=== PATIENT | female | born 1995 | race Caucasian/White ===

== ENCOUNTER 2017-03-18 06:00 | Outpatient (RCR) | payer OTHER | END 2017-04-03 | disposition home or self-care (01) | LOC: M ST 06:00 | PROVIDERS: ATTEND Internal Medicine | DX: Z51.89 Encounter for other specified aftercare (principal); J38.3 Other diseases of vocal cords ==

== ENCOUNTER → 2017-06-13 | Outpatient (CLI) | payer OTHER | LOC: M WUC 14:01 | PROVIDERS: ATTEND Physician Assistant | DX: Z02.5 Encounter for examination for participation in sport (principal) ==

== ENCOUNTER → 2025-06-14 | Outpatient (CLI) | payer OTHER ==
[2025-06-14 18:26] LABS: HCG, SERUM QUALITATIVE NEGATIVE (NEGATIVE)
== END ==
LOC: M PLALAB 15:19
PROVIDERS: ATTEND Advanced Practice Midwife
DX: O20.0 Threatened abortion (principal)

== ENCOUNTER → 2025-06-16 | Outpatient (CLI) | payer OTHER | LOC: M PLALAB 15:19 | PROVIDERS: ATTEND Advanced Practice Midwife | DX: O20.0 Threatened abortion (principal); Z3A.00 Weeks of gestation of pregnancy not specified ==